=== PATIENT | male | born 1950 | race Caucasian/White ===

== ENCOUNTER 2018-07-12 17:07 | Inpatient (IN) | payer BC, MEDICARE ==
[~2018-07-12] VITALS: Ht 177.8 cm; Wt 105.2 kg
[~2018-07-12 17:07] MED LIST: BEPO10DR3; CAND4TAB; CYCL1DRO6 OU; HCTZ25 PO; LANS15CA38; PER PO
[2018-07-12] MEDS ORDERED: NS(*) 0.9% 1000 ML BAG 1,000 ML IV ONE (17:41)
--- NOTE | 2018-07-12 17:47 | ER Report ---
History and Physical Time Seen By MD: 17:32 Hx. of Stated Complaint: Sent by with shortness of breath, low oxygen and distended abdomen. No bowel movement for 5 days HPI/ROS CHIEF COMPLAINT: Dyspnea HISTORY OF PRESENT ILLNESS: This is a 68-year-old male who presents to the emergency department for dyspnea. The patient was seen and evaluated by his primary care provider, sent to the ER for further evaluation. Patient states that about 2-3 days ago he was hiking, had increased shortness of breath, has been ongoing since however today he had increased dyspnea became concerned and followed up with his primary care provider. They noted his room air saturation in the 70s, he is placed on 2 L nasal cannula his saturation came up to the 90s. Patient is also concerned that he has underlying asthma and has been having some increased asthma exacerbations, he also has a sensitivity to perfumes and was concerned that she had an exposure to a perfume today that could've caused his increased shortness of breath. Patient does however have a history of a pulmonary embolus. He is also not had a bowel movement in about 5-6 days, has distention and some discomfort in his abdomen. No dysuria. No rashes. No chest pain. No fevers or chills. REVIEW OF SYSTEMS: Constitutional: No fever, no chills. Eyes: No discharge. ENT: No sore throat. Cardiovascular: No chest pain, no palpitations. Respiratory: As above. Gastrointestinal: As above. Genitourinary: No hematuria. Musculoskeletal: No back pain. Skin: No rashes. Neurological: No headache. Allergies: Coded Allergies: Penicillins (Verified Allergy, Severe, RASH, 07/12/18) montelukast (Verified Allergy, Intermediate, hives, 07/12/18) Home Meds Reported Medications Lansoprazole (LANSOPRAZOLE) 30 Mg Capsule.dr, 30 MG PO QDAY 07/12/18 Losartan Potassium (LOSARTAN POTASSIUM) 100 Mg Tablet, 1 TAB PO QDAY 07/12/18 Cyclosporine (Restasis) 32 Ea Droperette, 1 DROP OU BID 12/27/11 Hydrochlorothiazide (Hydrochlorothiazide) 25 Mg Tab, 1 TAB PO QDAY 12/27/11 Discontinued Reported Medications Oxycodone/Acetaminophen (OXYCODONE/ACETAMINOPHEN 5MG/325 MG) 5 Mg/325 Mg Tab, 1 - 2 TAB PO Q4H, #30 12/27/11 Bepotastine Besilate (Bepreve) 10 Ml Drops 12/27/11 Lansoprazole (Prevacid) 15 Mg Capsule. 12/27/11 Candesartan Cilexetil (ATACAND) 4 Mg Tablet 12/27/11 Past Medical/Surgical History The patient has a past medical and surgical history of hypertension, pulmonary embolus, asthma, GERD, osteoarthritis, wears glasses, eczema, cyst removal from left wrist, total hip replacement on the right, tonsillectomy. Reviewed Nurses Notes: Yes Hx Smoking: No Hx Substance Use Disorder: No Hx Alcohol Use: Yes (OCC) Constitutional Vital Sign - Last 24 Hours 07/12/18 07/12/18 07/12/18 07/12/18 17:10 17:10 17:15 17:30 Temp 98.0 Pulse 112 105 99 Resp 22 17 32 B/P (MAP) 134/85 Pulse Ox 78 94 91 O2 Flow Rate 4.0 07/12/18 07/12/18 07/12/18 07/12/18 17:45 18:07 18:15 18:30 Pulse 98 Resp 40 19 B/P (MAP) 102/74 (83) 138/90 (106) Pulse Ox 92 96 07/12/18 07/12/18 07/12/18 07/12/18 18:45 19:00 19:15 19:30 Pulse 95 89 98 91 Resp 22 15 18 B/P (MAP) 111/71 (84) 127/73 (91) Pulse Ox 96 85 92 Physical Exam General Appearance: The patient is alert, has no immediate need for airway protection and no signs of toxicity. Eyes: Pupils equal and round no pallor or injection. ENT, Mouth: Mucous membranes are moist. Respiratory: There are no retractions, diminished right-sided lung sounds, left side clear to auscultation. Cardiovascular: Regular rate and rhythm, no murmurs, clicks or rubs. Gastrointestinal: Abdomen very round, distended and firm, hypoactive bowel sounds in the right lower quadrant, left upper and lower quadrants, normoactive to hyperactive in the right upper quadrant, tenderness to the right upper quadrant. No abdominal bruits. Neurological: Alert and oriented 4. Moving all extremities. Following all co mmands. No focal neuro deficits. Skin: Warm and dry, no rashes. Musculoskeletal: Neck is supple non tender. Extremities are nontender, nonswollen and have full range of motion. DIFFERENTIAL DIAGNOSIS: After history and physical exam differential diagnosis was considered for shortness of breath including but not limited to pulmonary infectious process, COPD, asthma, pulmonary embolus and congestive heart failure.abdominal pain including but not limited to appendicitis, cholecystitis, gastritis and urinary tract infection. Medical Decision Making Data Points Result Diagram: 07/12/18 1716 07/12/18 1716 Laboratory Hematology Test 07/12/18 15:16 07/12/18 17:16 07/12/18 18:03 Prothrombin Time 13.3 seconds (12.0-14.4) Prothromb Time International Ratio 1.01 Activated Partial Thromboplast Time 28 seconds (23-35) Red Blood Count 6.25 M/uL (4.00-5.60) Mean Corpuscular Volume 77.4 fL (80.0-96.0) Mean Corpuscular Hemoglobin 25.0 pg (26.0-33.0) Mean Corpuscular Hemoglobin Concent 32.3 g/dL (32.0-36.0) Red Cell Distribution Width 18.3 % (11.5-14.5) Mean Platelet Volume 8.0 fL (7.2-11.1) Neutrophils (%) (Auto) 69.0 % (39.4-72.5) Lymphocytes (%) (Auto) 19.9 % (17.6-49.6) Monocytes (%) (Auto) 7.6 % (4.1-12.4) Eosinophils (%) (Auto) 1.7 % (0.4-6.7) Basophils (%) (Auto) 1.8 % (0.3-1.4) Nucleated RBC Relative Count (auto) 0.1 /100WBC Neutrophils # (Auto) 8.3 K/uL (2.0-7.4) Lymphocytes # (Auto) 2.4 K/uL (1.3-3.6) Monocytes # (Auto) 0.9 K/uL (0.3-1.0) Eosinophils # (Auto) 0.2 K/uL (0.0-0.5) Basophils # (Auto) 0.2 K/uL (0.0-0.1) Nucleated RBC Absolute Count (auto) 0.02 K/uL Peripheral Blood Smear Y/N Sodium Level 135 mmol/L (137-145) Potassium Level 3.5 mmol/L (3.5-5.0) Chloride Level 98 mmol/L (98-107) Carbon Dioxide Level 27 mmol/L (22-30) Blood Urea Nitrogen 23 mg/dl (9-21) Creatinine 1.50 mg/dl (0.66-1.25) Glomerular Filtration Rate Calc 46.5 Random Glucose 112 mg/dl (75-110) Calcium Level 9.3 mg/dl (8.4-10.2) Total Bilirubin 0.6 mg/dl (0.2-1.3) Aspartate Amino Transf (AST/SGOT) 44 U/L (0-35) Alanine Aminotransferase (ALT/SGPT) 55 U/L (0-56) Alkaline Phosphatase 92 U/L (0-126) Troponin I 0.080 ng/ml Total Protein 7.5 g/dl (6.3-8.2) Albumin 4.0 g/dl (3.5-5.0) Urine Color Yellow Urine Clarity Clear Urine pH 7.0 pH (4.8-9.5) Urine Specific [place] 1.009 Urine Protein Negative mg/dL (NEGATIVE) Urine Glucose (UA) Negative mg/dL (NEGATIVE) Urine Ketones Negative mg/dL (NEGATIVE) Urine Blood Negative (NEGATIVE) Urine Nitrite Negative (NEGATIVE) Urine Bilirubin Negative (NEGATIVE) Urine Urobilinogen Negative mg/dL (0.2-1.9) Urine Leukocyte Esterase Negative (NEGATIVE) Urine RBC <1 /HPF (0-2/HPF) Urine WBC 1 /HPF (0-5/HPF) Urine Squamous Epithelial Cells None /LPF (</=FEW) Urine Bacteria Negative /HPF (NONE-FEW) Urine Mucus None /HPF (NONE-FEW) Chemistry Test 07/12/18 15:16 07/12/18 17:16 07/12/18 18:03 Prothrombin Time 13.3 seconds (12.0-14.4) Prothromb Time International Ratio 1.01 Activated Partial Thromboplast Time 28 seconds (23-35) White Blood Count 12.1 k/uL (4.5-11.0) Red Blood Count 6.25 M/uL (4.00-5.60) Hemoglobin 15.6 g/dL (14.0-18.0) Hematocrit 48.4 % (42.0-52.0) Mean Corpuscular Volume 77.4 fL (80.0-96.0) Mean Corpuscular Hemoglobin 25.0 pg (26.0-33.0) Mean Corpuscular Hemoglobin Concent 32.3 g/dL (32.0-36.0) Red Cell Distribution Width 18.3 % (11.5-14.5) Platelet Count 274 K/uL (150-450) Mean Platelet Volume 8.0 fL (7.2-11.1) Neutrophils (%) (Auto) 69.0 % (39.4-72.5) Lymphocytes (%) (Auto) 19.9 % (17.6-49.6) Monocytes (%) (Auto) 7.6 % (4.1-12.4) Eosinophils (%) (Auto) 1.7 % (0.4-6.7) Basophils (%) (Auto) 1.8 % (0.3-1.4) Nucleated RBC Relative Count (auto) 0.1 /100WBC Neutrophils # (Auto) 8.3 K/uL (2.0-7.4) Lymphocytes # (Auto) 2.4 K/uL (1.3-3.6) Monocytes # (Auto) 0.9 K/uL (0.3-1.0) Eosinophils # (Auto) 0.2 K/uL (0.0-0.5) Basophils # (Auto) 0.2 K/uL (0.0-0.1) Nucleated RBC Absolute Count (auto) 0.02 K/uL Peripheral Blood Smear Y/N Glomerular Filtration Rate Calc 46.5 Calcium Level 9.3 mg/dl (8.4-10.2) Total Bilirubin 0.6 mg/dl (0.2-1.3) Aspartate Amino Transf (AST/SGOT) 44 U/L (0-35) Alanine Aminotransferase (ALT/SGPT) 55 U/L (0-56) Alkaline Phosphatase 92 U/L (0-126) Troponin I 0.080 ng/ml Total Protein 7.5 g/dl (6.3-8.2) Albumin 4.0 g/dl (3.5-5.0) Urine Color Yellow Urine Clarity Clear Urine pH 7.0 pH (4.8-9.5) Urine Specific [place] 1.009 Urine Protein Negative mg/dL (NEGATIVE) Urine Glucose (UA) Negative mg/dL (NEGATIVE) Urine Ketones Negative mg/dL (NEGATIVE) Urine Blood Negative (NEGATIVE) Urine Nitrite Negative (NEGATIVE) Urine Bilirubin Negative (NEGATIVE) Urine Urobilinogen Negative mg/dL (0.2-1.9) Urine Leukocyte Esterase Negative (NEGATIVE) Urine RBC <1 /HPF (0-2/HPF) Urine WBC 1 /HPF (0-5/HPF) Urine Squamous Epithelial Cells None /LPF (</=FEW) Urine Bacteria Negative /HPF (NONE-FEW) Urine Mucus None /HPF (NONE-FEW) Coagulation Test 07/12/18 15:16 Prothrombin Time 13.3 seconds Prothromb Time International Ratio 1.01 Activated Partial Thromboplast Time 28 seconds Urinalysis Test 07/12/18 18:03 Urine Color Yellow Urine Clarity Clear Urine pH 7.0 pH (4.8-9.5) Urine Specific [place] 1.009 Urine Protein Negative mg/dL (NEGATIVE) Urine Glucose (UA) Negative mg/dL (NEGATIVE) Urine Ketones Negative mg/dL (NEGATIVE) Urine Blood Negative (NEGATIVE) Urine Nitrite Negative (NEGATIVE) Urine Bilirubin Negative (NEGATIVE) Urine Urobilinogen Negative mg/dL (0.2-1.9) Urine Leukocyte Esterase Negative (NEGATIVE) Urine RBC <1 /HPF (0-2/HPF) Urine WBC 1 /HPF (0-5/HPF) Urine Squamous Epithelial Cells None /LPF (</=FEW) Urine Bacteria Negative /HPF (NONE-FEW) Urine Mucus None /HPF (NONE-FEW) EKG/Imaging EKG Interpretation 12 lead EKG: Time of EKG 1804. Rhythm: Sinus tachycardia, ventricular rate 103 bpm. [place]: Right ventricular hypertrophy. QRS: normal ST segments: No ST depression or elevation identified. There are inverted T waves in V2, V3, V4 with poor T-wave progression in V5 and V6. No previous EKGs for comparison. Imaging Location: [facility] Patient: Kervin Eldridge : 1950 Visit/Account:[id number] Date of Sevice: 07/12/2018 EXAMINATION: CTA of the chest with IV contrast CT abdomen/pelvis with IV contrast HISTORY: Shortness of breath. Dyspnea. Low O2. History of PE. No bowel movement for 5 days. Distention. Possible obstruction. TECHNIQUE: Pulmonary embolus protocol - Thin-slice axial imaging of the chest was performed during maximal pulmonary arterial opacification with IV contrast. 3D slab MIPs and 2D reconstructions in the coronal and sagittal planes were performed to aid pulmonary embolus detection. Wire Saw Operator images have been stored on PACS. Axial CT images of the abdomen and pelvis were then obtained with IV contrast, with coronal and sagittal 2D reconstructed images. One of the following dose optimization techniques was utilized in the performance of this exam: Automated exposure control; adjustment of the mA and/or kV according to the patient's size; or use of an iterative reconstruction technique. Specific details can be referenced in the facility's radiology CT exam operational policy. Contrast: 75 mL of IV Isovue-370. COMPARISON: None. FINDINGS: Chest: Pulmonary arteries: Exam is positive for pulmonary embolism. There is a filling defect in the left upper lobe pulmonary artery extending into segmental and subsegmental branches. There is a filling defect in the left lower lobe pulmonary artery, extending into segmental and subsegmental branches. There is a filling defect in the distal right main pulmonary artery, extending into segmental and subsegmental branches in the right middle and lower lobes. Additional small filling defects present within right upper lobe pulmonary artery branches. Moderate volume of overall clot burden. Heart, aorta, and great vessels: Normal caliber thoracic aorta. There is enlargement of the right-sided cardiac chambers with an RV:LV ratio of 1.2 which may indicate some degree of right heart strain. No pericardial effusion. Lungs and pleura: Slight scarring or atelectasis at the lung bases. No focal consolidation or evidence of pulmonary infarct. No pleural effusion or pneumothorax. The central airways are patent. Mediastinum and brandon: Small hiatal hernia. Chest wall: Negative. Bones: No acute osseous findings. Advanced chronic degenerative changes at the right shoulder. Mild multilevel degenerative changes along the thoracic spine. Abdomen/pelvis: Liver: Negative. Gallbladder and bile ducts: Negative. Spleen: Negative. Pancreas: Negative. Adrenal glands: Negative. Kidneys: Negative. No hydronephrosis or urinary calculi. Bowel and peritoneum: The small bowel and colon are normal in caliber. No bowel obstruction. Moderate volume of colonic stool along the right and transverse colon. No localized bowel wall thickening. Normal appendix. No free fluid or free intraperitoneal air. Pelvic structures: There is a small bladder diverticulum along the posterolateral left bladder wall, measuring up to 2.2 cm. Lymph node assessment: Negative. Vessels: Mild vascular calcifications. Normal caliber abdominal aorta. Musculoskeletal: No acute osseous findings. Chronic multilevel degenerative changes along the lumbar spine. Partially visualized right hip arthroplasty. Body wall: Negative. IMPRESSION: 1. Positive exam for pulmonary embolism, with a moderate clot burden to both lungs. 2. Enlargement of the right-sided cardiac chambers with a calculated RV:LV ratio 1.2, which may indicate some degree of right heart strain. 3. The lungs are clear. No focal consolidation or evidence of pulmonary infarct. No pleural effusion. 4. Moderate volume of colonic stool along the right and transverse colon. No evidence of bowel obstruction. 5. No other acute intra-abdomi al findings. Findings were discussed with SAMIRA NOONAN at 07/12/2018 7:05 PM. Report Dictated By: Kaveh Jerez MD at 07/12/2018 6:57 PM Report E-Signed By: Kaveh Jerez MD at 07/12/2018 7:09 PMWSN:[id number] ED Course/Re-evaluation Clinical Indication for ER IV: Hydration, IV Access ED Course The patient was admitted to room. A history and physical were obtained. Differential diagnoses were considered. An IV was started. A CBC, CMP and UA were collected. EKG showing sinus tachycardia, no ST depression or elevation, inverted T waves in the lateral leads, no previous EKGs for comparison. CBC showing white blood cell count 12.1, red blood cells 6.25, chemistry showing sodium 135, BUN 23, creatinine 1.50, troponin 0.080, INR 1.01, negative UA. The patient was given a 1 L normal saline bolus. No d-dimer was done, patient has a history of pulmonary emboli and with his symptoms I decided to proceed with a CTA of the chest and a CT of the abdomen and pelvis. CTA showing pulmonary emboli and right and left lungs, with some right heart strain, no concerning findings on the CT of the abdomen and pelvis. I reviewed the results with the patient and his , I did explain to them that I was concerned that with the right heart strain and the emboli in both lungs he would be better off staying in the hospital for anticoagulation, possible echocardiogram. I also feel that the troponin is secondary to heart strain and a mild elevation in the patient's creatinine. I discussed the case with Dr. Julia xiong, the hospitalist on- call, he is accepted the patient in the hospitalist services, the patient will be admitted to the ICU for 24-48 hours. I reviewed this with the patient, no other questions or concerns at the time of admission. 07/12/2018 7:30:36 pm he did speak with Dr. Julia xiong, the hospitalist condenser tube tender, we discussed the patient's case, he is accepted the patient in the hospitalist services, the patient will be going to the intensive care unit, diagnosis of pulmonary embolus and right heart strain. Decision to Disposition Date: Jul 12, 2018 Decision to Disposition Time: 19:30 Depart Departure Latest Vital Signs Vital Signs Date Time Temp Pulse Resp B/P (MAP) Pulse Ox O2 Delivery O2 Flow Rate FiO2 07/12/18 19:30 91 18 127/73 (91) 92 07/12/18 17:10 98.0 07/12/18 17:10 4.0 Impression: Primary Impression: Pulmonary emboli Condition: Improved Disposition: Admitted from ER Referrals: DAYANARA ESPINO DO (PCP) Problem Qualifiers Primary Impression: Pulmonary emboli Pulmonary embolism type: other Chronicity: acute Acute cor pulmonale presence: without acute cor pulmonale Qualified Codes: I26.99 - Other pulmonary embolism without acute cor pulmonale SAMIRA NOONAN CLINICAL RESEARCH MONITOR-BC Jul 12, 2018 17:47
[2018-07-12 17:51] LABS: PLATELET COUNT, AUTOMATED 274 K/uL (150-450)
[2018-07-12] MEDS ORDERED: IOPAMIDOL 76% 50 ML INFUS BTL 100 ML ONE (18:02)
[2018-07-12] MEDS ORDERED: NS(*) 0.9% 50 ML BAG 50 ML ONE (18:03)
--- NOTE | 2018-07-12 18:31 | EKG ---
[place] [facility] [place] NAME: CHALO HERNANDEZ : [id number] MR: [id number] V: [id number] EXAM DATE: ORDERING PHYSICIAN: SAMIRA NOONAN TECHNOLOGIST: MIHAI Test Reason : DYSPNEA Blood Pressure : / mmHG Vent. Rate : 103 BPM Atrial Rate : 103 BPM P-R Int : 184 ms QRS Dur : 088 ms QT Int : 344 ms P-R-T Axes : 048 158 051 degrees QTc Int : 450 ms Sinus tachycardia with premature atrial complexes Right ventricular hypertrophy with repolarization abnormality Nonspecific T wave abnormality Abnormal ECG No previous ECGs available Confirmed by Sinan Parkinson ([id number]) on 07/13/2018 6:38:21 AM Referred By: SAMIRA Confirmed By:Sinan Maldonado
--- NOTE | 2018-07-12 19:12 | RADIOLOGY IMAGING REPORT ---
FACILITY: [facility] PATIENT NAME: Kervin Eldridge : 1950 MR: [id number] V: [id number] EXAM DATE: ORDERING PHYSICIAN: SAMIRA NOONAN TECHNOLOGIST: Location: [facility] Patient: Kervin Eldridge : 1950 Visit/Account:[id number] Date of Sevice: 07/12/2018 EXAMINATION: CTA of the chest with IV contrast CT abdomen/pelvis with IV contrast HISTORY: Shortness of breath. Dyspnea. Low O2. History of PE. No bowel movement for 5 days. Distenti on. Possible obstruction. TECHNIQUE: Pulmonary embolus protocol - Thin-slice axial imaging of the chest was performed during maximal pulmonary arterial opacification with IV contrast. 3D slab MIPs and 2D reconstructions in the coronal and sagittal planes were performed to aid pulmonary embolus detection. Correction Lieutenant images have been stored on PACS. Axial CT images of the abdomen and pelvis were then obtained with IV contrast, with coronal and sagit tree 2D reconstructed images. One of the following dose optimization techniques was utilized in the performance of this exam: Autom ated exposure control; adjustment of the mA and/or kV according to the patient's size; or use of an i terative reconstruction technique. Specific details can be referenced in the facility's radiology C T exam operational policy. Contrast: 75 mL of IV Isovue-370. COMPARISON: None. FINDINGS: Chest: Pulmonary arteries: Exam is positive for pulmonary embolism. There is a filling defect in the left u pper lobe pulmonary artery extending into segmental and subsegmental branches. There is a filling def ect in the left lower lobe pulmonary artery, extending into segmental and subsegmental branches. Ther e is a filling defect in the distal right main pulmonary artery, extending into segmental and subsegm ental branches in the right middle and lower lobes. Additional small filling defects present within r ight upper lobe pulmonary artery branches. Moderate volume of overall clot burden. Heart, aorta, and great vessels: Normal caliber thoracic aorta. There is enlargement of the right-si ded cardiac chambers with an RV:LV ratio of 1.2 which may indicate some degree of right heart strain. No pericardial effusion. Lungs and pleura: Slight scarring or atelectasis at the lung bases. No focal consolidation or eviden ce of pulmonary infarct. No pleural effusion or pneumothorax. The central airways are patent. Mediastinum and brandon: Small hiatal hernia. Chest wall: Negative. Bones: No acute osseous findings. Advanced chronic degenerative changes at the right shoulder. Mild multilevel degenerative changes along the thoracic spine. Abdomen/pelvis: Liver: Negative. Gallbladder and bile ducts: Negative. Spleen: Negative. Pancreas: Negative. Adrenal glands: Negative. Kidneys: Negative. No hydronephrosis or urinary calculi. Bowel and peritoneum: The small bowel and colon are normal in caliber. No bowel obstruction. Moderat e volume of colonic stool along the right and transverse colon. No localized bowel wall thickening. N ormal appendix. No free fluid or free intraperitoneal air. Pelvic structures: There is a small bladder diverticulum along the posterolateral left bladder wa ll, measuring up to 2.2 cm. Lymph node assessment: Negative. Vessels: Mild vascular calcifications. Normal caliber abdominal aorta. Musculoskeletal: No acute osseous findings. Chronic multilevel degenerative changes along the lumba r spine. Partially visualized right hip arthroplasty. Body wall: Negative. IMPRESSION: 1. Positive exam for pulmonary embolism, with a moderate clot burden to both lungs. 2. Enlargement of the right-sided cardiac chambers with a calculated RV:LV ratio 1.2, which may indic ate some degree of right heart strain. 3. The lungs are clear. No focal consolidation or evidence of pulmonary infarct. No pleural effusion. 4. Moderate volume of colonic stool along the right and transverse colon. No evidence of bowel obstru ction. 5. No other acute intra-abdomi al findings. Findings were discussed with SAMIRA NOONAN at 07/12/2018 7:05 PM. Report Dictated By: Kaveh Jerez MD at 07/12/2018 6:57 PM Report E-Signed By: Kaveh Jerez MD at 07/12/2018 7:09 PMWSN:[id number]
--- NOTE | 2018-07-12 19:13 | RADIOLOGY IMAGING REPORT ---
FACILITY: [facility] - [place], [place] PATIENT NAME: Kervin Eldridge : 1950 MR: [id number] V: [id number] EXAM DATE: ORDERING PHYSICIAN: SAMIRA NOONAN TECHNOLOGIST: Location: [facility] Patient: Kervin Eldridge : 1950 Visit/Account:[id number] Date of Sevice: 07/12/2018 EXAMINATION: CTA of the chest with IV contrast CT abdomen/pelvis with IV contrast HISTORY: Shortness of breath. Dyspnea. Low O2. History of PE. No bowel movement for 5 days. Distenti on. Possible obstruction. TECHNIQUE: Pulmonary embolus protocol - Thin-slice axial imaging of the chest was performed during maximal pulmonary arterial opacification with IV contrast. 3D slab MIPs and 2D reconstructions in the coronal and sagittal planes were performed to aid pulmonary embolus detection. [employer] images have been stored on PACS. Axial CT images of the abdomen and pelvis were then obtained with IV contrast, with coronal and sagit tree 2D reconstructed images. One of the following dose optimization techniques was utilized in the performance of this exam: Autom ated exposure control; adjustment of the mA and/or kV according to the patient's size; or use of an i terative reconstruction technique. Specific details can be referenced in the facility's radiology C T exam operational policy. Contrast: 75 mL of IV Isovue-370. COMPARISON: None. FINDINGS: Chest: Pulmonary arteries: Exam is positive for pulmonary embolism. There is a filling defect in the left u pper lobe pulmonary artery extending into segmental and subsegmental branches. There is a filling def ect in the left lower lobe pulmonary artery, extending into segmental and subsegmental branches. Ther e is a filling defect in the distal right main pulmonary artery, extending into segmental and subsegm ental branches in the right middle and lower lobes. Additional small filling defects present within r ight upper lobe pulmonary artery branches. Moderate volume of overall clot burden. Heart, aorta, and great vessels: Normal caliber thoracic aorta. There is enlargement of the right-si ded cardiac chambers with an RV:LV ratio of 1.2 which may indicate some degree of right heart strain. No pericardial effusion. Lungs and pleura: Slight scarring or atelectasis at the lung bases. No focal consolidation or eviden ce of pulmonary infarct. No pleural effusion or pneumothorax. The central airways are patent. Mediastinum and brandon: Small hiatal hernia. Chest wall: Negative. Bones: No acute osseous findings. Advanced chronic degenerative changes at the right shoulder. Mild multilevel degenerative changes along the thoracic spine. Abdomen/pelvis: Liver: Negative. Gallbladder and bile ducts: Negative. Spleen: Negative. Pancreas: Negative. Adrenal glands: Negative. Kidneys: Negative. No hydronephrosis or urinary calculi. Bowel and peritoneum: The small bowel and colon are normal in caliber. No bowel obstruction. Moderat e volume of colonic stool along the right and transverse colon. No localized bowel wall thickening. N ormal appendix. No free fluid or free intraperitoneal air. Pelvic structures: There is a small bladder diverticulum along the posterolateral left bladder wa ll, measuring up to 2.2 cm. Lymph node assessment: Negative. Vessels: Mild vascular calcifications. Normal caliber abdominal aorta. Musculoskeletal: No acute osseous findings. Chronic multilevel degenerative changes along the lumba r spine. Partially visualized right hip arthroplasty. Body wall: Negative. IMPRESSION: 1. Positive exam for pulmonary embolism, with a moderate clot burden to both lungs. 2. Enlargement of the right-sided cardiac chambers with a calculated RV:LV ratio 1.2, which may indic ate some degree of right heart strain. 3. The lungs are clear. No focal consolidation or evidence of pulmonary infarct. No pleural effusion. 4. Moderate volume of colonic stool along the right and transverse colon. No evidence of bowel obstru ction. 5. No other acute intra-abdomi al findings. Findings were discussed with SAMIRA NOONAN at 07/12/2018 7:05 PM. Report Dictated By: Kaveh Jerez MD at 07/12/2018 6:57 PM Report E-Signed By: Kaveh Jerez MD at 07/12/2018 7:09 PMWSN:[id number]
[2018-07-12 20:19] LABS: INR 1.01
[2018-07-12] MEDS ORDERED: LOSA100T75 PO (20:19)
[2018-07-12] MEDS ORDERED: LANS30CA63 PO (20:31)
[2018-07-12 20:51] VITALS: BP 130/85
[2018-07-12] MEDS ORDERED: ACETAMINOPHEN 325 MG TAB PO PRN (21:25)
[2018-07-12] MEDS ORDERED: ENOXAPARIN 100 MG/ML SYR SC SCH (21:25)
[2018-07-12] MEDS ORDERED: FLUSH 10 ML SYR IVP PRN ×2 (21:25)
[2018-07-12 22:00] VITALS: BP 122/84
[2018-07-12 22:30] VITALS: BP 117/71
[2018-07-12 23:00] VITALS: BP 116/72
--- NOTE | 2018-07-12 23:05 | History & Physical ---
History of Present Illness Chief Complaint POLO History of Present Illness 68M with PMHx of previous PE admitted after PE found on imaging in ER. Reports 1-2 weeks of worsening dyspnea on exertion. No fever, chills, cough. No significant chest pain. Thought he might be having an exacerbation of his asthma and saw PCP. Was hypoxic in the 70's so referred to [facility] ER. CTA demonstrated significant bilateral clot burden and possible RH strain. Admitted to ICU for anticoagulation monitoring. History Problems: (1) HTN (hypertension) Status: Chronic (2) Asthma Status: Chronic (3) Pulmonary emboli Status: Chronic Home Meds Reported Medications Lansoprazole (LANSOPRAZOLE) 30 Mg Capsule.dr, 30 MG PO QDAY 07/12/18 Losartan Potassium (LOSARTAN POTASSIUM) 100 Mg Tablet, 1 TAB PO QDAY 07/12/18 Cyclosporine (Restasis) 32 Ea Droperette, 1 DROP OU BID 12/27/11 Hydrochlorothiazide (Hydrochlorothiazide) 25 Mg Tab, 1 TAB PO QDAY 12/27/11 Discontinued Reported Medications Oxycodone/Acetaminophen (OXYCODONE/ACETAMINOPHEN 5MG/325 MG) 5 Mg/325 Mg Tab, 1 - 2 TAB PO Q4H, #30 12/27/11 Bepotastine Besilate (Bepreve) 10 Ml Drops 12/27/11 Lansoprazole (Prevacid) 15 Mg Capsule. 12/27/11 Candesartan Cilexetil (ATACAND) 4 Mg Tablet 12/27/11 Allergies: Coded Allergies: Penicillins (Verified Allergy, Severe, RASH, 07/12/18) montelukast (Verified Allergy, Intermediate, hives, 07/12/18) Hx Smoking: No Hx Alcohol Use: Yes Alcohol Used: Beer Review of Systems All Systems Reviewed/Normal: Yes, Except as Noted Neurological: No Syncope, No Confusion Cardiovascular: No Chest Pain Respiratory: Shortness of Breath Exam Vital Signs Vital Signs Date Time Temp Pulse Resp B/P (MAP) Pulse Ox O2 Delivery O2 Flow Rate FiO2 07/12/18 22:26 96 07/12/18 22:00 30 122/84 (97) 96 High-Flow Nasal Cannula 6.0 07/12/18 20:51 97.8 General Appearance: Alert, Awake, No Acute Distress, Afebrile Neuro: No Gross deficits Eyes: PERRLA ENT: Normal Neck: No Masses Cardiovascular: Normal Rhythm & Peripheral Pulses Respiratory: Clear to Auscultation GI: Abd Soft and Non-Tender Extremities: Soft and Non Tender, Warm, Pulses, Perfused, Edema (mild to knee equal bilaterally) Medical Decision Making Data Points Result Diagram: 07/12/186 07/12/181715 Assessment and Plan Problems: (1) Pulmonary emboli Status: Chronic Assessment & Plan: Moderate bilateral clot burden with possible right heart strain. Will get ECHO, BNP and begin Lovenox 1.5mg/kg. Likely transition to NOAC. He is requiring O2. (2) Acute hypoxemic respiratory failure Assessment & Plan: Secondary to PE, treatment as above. May need supplemental O2 at discharge. (3) HTN (hypertension) Status: Chronic Assessment & Plan: Hold chronic ARB, monitor Cr. (4) ALISON (acute kidney injury) Assessment & Plan: Cr 1.5 on admission, unknown baseline. Will hold ARB and recheck in am. Venous Thromboembolism Antithrombotics Is Pt On Any Antithrombotics?: Yes Exam Sepsis Risk: No Definite Risk Problem Qualifiers (1) Pulmonary emboli: Pulmonary embolism type: other Chronicity: acute Acute cor pulmonale p resence: without acute cor pulmonale Qualified Codes: I26.99 - Other pulmonary embolism without acute cor pulmonale ELDA MAGANA DO Jul 12, 2018 23:05
[2018-07-12 23:30] VITALS: BP 97/62
[2018-07-13] VITALS (50 sets, daily range): BP systolic 90–134; BP diastolic 59–97; Ht 177.8 cm; Wt 105.2 kg
[2018-07-13 05:26] LABS: PLATELET COUNT, AUTOMATED 219 K/uL (150-450)
[2018-07-13] MEDS ORDERED: MAGNESIUM HYDROXIDE* 30ML UDCP PO PRN (08:10)
[2018-07-13] MEDS ORDERED: SALINE 0.65% NAS SPR 44 ML BTL PRN (08:10)
[2018-07-13] MEDS ORDERED: BISACODYL 10 MG SUPP PR PRN (08:10)
[2018-07-13] MEDS: APIXABAN 2.5 MG TABLET PO SCH ×2 (09:05→20:29)
[2018-07-13] MEDS: DOCUSATE SODIUM 100 MG CAP PO SCH ×2 (09:05→20:28)
[2018-07-13] MEDS: TAMSULOSIN HCL 0.4 MG CAP PO SCH (09:05)
[2018-07-13] MEDS: POLYETHYLENE GLYCOL 17 GM PKT PO SCH (09:05)
--- NOTE | 2018-07-13 09:09 | Hospitalist Progress Note ---
Subjective Progress Notes Subjective He denies cp/sob/unilateral LE edema. Staff reports that he has a 500cc PVR. Also, the patient reports that he hasn't had a BM in 4-5 days. Physical Exam Vital Signs Date Time Temp Pulse Resp B/P (MAP) Pulse Ox O2 Delivery O2 Flow Rate FiO2 07/13/18 07:28 93 07/13/18 07:15 97.5 24 115/80 (92) 95 High-Flow Nasal Cannula 6.0 Intake and Output 07/13/18 06:59 Intake Total 2000 ml Balance 2000 ml Intake Oral 1000 ml IV Total 1000 ml # Voids 5 # Bowel Movements 2 General Appearance: Alert, Awake, No Acute Distress Cardiovascular: Regular Rate and Rhythm Respiratory: Clear to Auscultation Extremities: No Edema Result Diagram: 07/13/1851607/13/18516 Assessment and Plan Problems: (1) Pulmonary emboli Status: Chronic Assessment & Plan: He presented with a couple of days of progressive POLO. He has moderate bilateral clot burden with possible right heart strain. BP/P wnl. BNP elevated and troponin in the [place] area. He is still requiring 8L of O2. He received Lovenox at 1.5mg/kg last night. Will transition to Eliquis. Echo today. BNP/Troponin/Hypercoagulable workup tomorrow (2) Acute hypoxemic respiratory failure Assessment & Plan: Secondary to PE, treatment as above. May need supplemental O2 at discharge. (3) HTN (hypertension) Status: Chronic Assessment & Plan: Hold chronic ARB, monitor Cr. (4) ALISON (acute kidney injury) Assessment & Plan: Cr 1.5 on admission, unknown baseline. He also having asymptomatic 500cc of PVR. Cr 1.2 today. (5) Urine retention Status: Acute Assessment & Plan: Asymptomatic retention of 500cc. Unclear how long he has had this. Likely, related to BPH. Will start Flomax this morning and follow PVR with bladder scanner. Hopefully, can avoid catheterization. Exam Sepsis Risk: No Definite Risk Problem Qualifiers (1) Pulmonary emboli: Pulmonary embolism type: other Chronicity: acute Acute cor pulmonale presence: without acute cor pulmonale Qualified Codes: I26.99 - Other pulmonary embolism without acute cor pulmonale RENETTA DE LUNA MD Jul 13, 2018 09:09
[2018-07-13] MEDS ORDERED: BENZONATATE 100 MG CAP PO PRN ×2 (22:55→23:15)
[2018-07-13] MEDS ORDERED: BENZONATATE 100 MG CAP ONE (22:58)
[2018-07-14 05:00] VITALS: BP 109/79
[2018-07-14 06:17] LABS: PLATELET COUNT, AUTOMATED 214 K/uL (150-450)
[2018-07-14 08:04] VITALS: BP 122/79
[2018-07-14] MEDS ORDERED: POLYETHYLENE GLYCOL 17 GM PKT PO PRN (08:20)
[2018-07-14] MEDS ORDERED: DOCUSATE SODIUM 100 MG CAP PO SCH (09:00)
[2018-07-14] MEDS: DOCUSATE SODIUM 100 MG CAP PO SCH (09:14)
[2018-07-14] MEDS: TAMSULOSIN HCL 0.4 MG CAP PO SCH (09:14)
[2018-07-14] MEDS: POLYETHYLENE GLYCOL 17 GM PKT PO SCH (09:15)
[2018-07-14] MEDS: APIXABAN 2.5 MG TABLET PO SCH (09:15)
[2018-07-14] MEDS ORDERED: APIX5TAB PO (10:32)
[2018-07-14] MEDS ORDERED: TAMS0.4C70 PO (10:34)
[2018-07-14] MEDS ORDERED: BENZ100C26 PO (10:34)
--- NOTE | 2018-07-14 10:46 | Hospitalist Depart ---
Discharge Summary Reason for Hosp/Final Diag: (1) Pulmonary emboli Status: Chronic Hospital Course & Plan: The patient presented with a few of days of progressive POLO. He has pulmonary embolism with moderate bilateral clot burden with possible right heart strain on pulmonary CTA. Vital signs were stable. BNP elevated and his initial troponin was in the [place] area. His troponin then normalized. His O2 requirements were high on admission, but gradually improved. At the time of discharge, he was requiring 2L per NC to maintain his saturations. He initially received Lovenox at 1.5mg/kg and then was transitioned to Eliquis. Echo was performed, formal results are pending. Hypercoaguable work up was ordered and the patient is to follow up with Dr. Lobo for further evaluation of he coagulopathy. The patient is also to follow up with Dr. Snow in one week. (2) Acute hypoxemic respiratory failure Hospital Course & Plan: Secondary to PE, treatment as above. Will require supplemental O2 at discharge. Will follow up with Dr. Snow in one week. (3) HTN (hypertension) Status: Chronic Hospital Course & Plan: Hold chronic ARB and diuretic due to low BPs and elevated creatinine on admission. Creatinine improved with hydration. BP remained WNL off of medications during his inpatient stay. (4) ALISON (acute kidney injury) Hospital Course & Plan: Cr was 1.5 on admission, unknown baseline. He was also having asymptomatic urinary retention with 500cc of PVR. Flomax was started. Creatinine improved with hydration to 1.1. (5) Urine retention Status: Acute Hospital Course & Plan: Asymptomatic urinary retention of 500cc. Unclear how long he has had this. Likely, related to BPH. Flomax started. Departure Weight (Pounds): 232 Result Diagram: 07/14/1854707/14/18547 Condition: Improved Discharge: Home, Self Care Time Spent: < 30 min Discharge Instructions Home Meds Active Scripts Tamsulosin Hcl (TAMSULOSIN HCL) 0.4 Mg Cap.er.24h, 0.4 MG PO QDAY, #60 CAP Prov:TAVON GUILLEN MD 07/14/18 Benzonatate (BENZONATATE) 100 Mg Capsule, 200 MG PO Q8H PRN for COUGH, #30 CAPSULE 1 Refill Prov:TAVON GUILLEN MD 07/14/18 Apixaban (ELIQUIS) 5 Mg Tablet, 0 PO DIRECTED for 30 Days, #71 TAB 10mg po bid through July 19, then 5mg po bid thereafter. Prov:TAVON GUILLEN MD 07/14/18 Reported Medications Lansoprazole (LANSOPRAZOLE) 30 Mg Capsule., 30 MG PO QDAY 07/12/18 Losartan Potassium (LOSARTAN POTASSIUM) 100 Mg Tablet, 1 TAB PO QDAY 07/12/18 Cyclosporine (Restasis) 32 Ea Droperette, 1 DROP OU BID 12/27/11 Hydrochlorothiazide (Hydrochlorothiazide) 25 Mg Tab, 1 TAB PO QDAY 12/27/11 Discontinued Reported Medications Oxycodone/Acetaminophen (OXYCODONE/ACETAMINOPHEN 5MG/325 MG) 5 Mg/325 Mg Tab, 1 - 2 TAB PO Q4H, #30 12/27/11 Bepotastine Besilate (Bepreve) 10 Ml Drops 12/27/11 Lansoprazole (Prevacid) 15 Mg Capsule. 12/27/11 Candesartan Cilexetil (ATACAND) 4 Mg Tablet 12/27/11 Follow up Referrals: Family Practice - In One Week @ [facility] with CARLITA SNOW MD Oncology - In One Week @ [facility] with Dr. Lobo Diet: Regular Activity: As Tolerated Copies to: IRAIS MATHIAS MD; CARLITA SNOW MD ; Venous Thromboembolism Antithrombotics Is Pt On Any Antithrombotics?: Yes Problem Qualifiers (1) Pulmonary emboli: Pulmonary embolism type: other Chronicity: acute Acute cor pulmonale presence: without acute cor pulmonale Qualified Codes: I26.99 - Other pulmonary embolism without acute cor pulmonale TAVON GUILLEN MD Jul 14, 2018 10:46
== END 2018-07-14 11:30 | disposition home or self-care (01) | DRG 175 ==
LOC: ER 17:28 → ICU 19:40 → MED 07-13 14:36
PROVIDERS: ADMIT Internal Medicine; ATTEND Internal Medicine
DX: I26.99 Other pulmonary embolism without acute cor pulmonale (principal); J96.01 Acute respiratory failure with hypoxia; N17.9 Acute kidney failure, unspecified; I10 Essential (primary) hypertension; K21.9 Gastro-esophageal reflux disease without esophagitis; R33.9 Retention of urine, unspecified; J45.909 Unspecified asthma, uncomplicated; L30.9 Dermatitis, unspecified; Z96.641 Presence of right artificial hip joint; N40.1 Benign prostatic hyperplasia with lower urinary tract symptoms; R33.8 Other retention of urine; Z88.0 Allergy status to penicillin; Z88.8 Allergy status to other drugs, medicaments and biological substances
CPT/HCPCS: 36415; 71275; 74177; 81001; 81240; 81241; 81291; 82040; 82247; 82310; 82374; 82435; 82565; 82947; 83090; 83880; 84075; 84132; 84155; 84295; 84450; 84460; 84484; 84520; 85025; 85300; 85303; 85306; 85597; 85610; 85613; 85670; 85730; 85732; 86146; 86147; 93005; C8929; J1650; J7030; J7050; Q9957; Q9967

== ENCOUNTER 2018-07-28 07:45 | Outpatient (RCR) | payer BC, MEDICARE ==
[2018-07-13 10:29] VITALS: Wt 105.0 kg
[2018-07-27 09:19] VITALS: BP 123/81
--- NOTE | 2018-07-27 11:53 | ONCOLOGY CONSULTATION ---
EVENT DATE: July 27, 2018 REFERRING PHYSICIAN Hospitalist. PRIMARY CARE PHYSICIAN Juan M Pedroza DO REASON FOR CONSULTATION Evaluation and management of recurrent pulmonary embolus. HEMATOLOGY HISTORY Patient is a 68-year-old male who had a history of pulmonary embolism of the left lung in 2004 and as per patient it was idiopathic, treated with anticoagulation and patient did not have DVT at that time. He presented recently to the emergency room at [facility] in [place], [place] with shortness of breath so the patient had a CTA chest done on July 12, 2018, which showed moderate pulmonary embolism bilaterally with right heart strain. Patient was started on anticoagulation with Eliquis and put on oxygen. 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 His factor C activity, protein C activity, protein S activity, antithrombin III, Factor V Leiden mutation, anticardiolipin antibodies, beta-2 glycoprotein I antibodies and lupus anticoagulants all came back within the normal range or negative. PAST MEDICAL HISTORY 1. Pulmonary embolism in 2014, second episode in June 2018 and both were idiopathic without associated DVT. 2. Hypertension. 3. GERD. 4. Osteoarthritis. PAST SURGICAL HISTORY 1. Cyst removal from the left wrist. 2. Right hip replacement, 2016. 3. Tonsillectomy. FAMILY HISTORY Maternal grandfather had stomach cancer. SOCIAL HISTORY The patient is with a son and daughter. 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 He drinks 2-3 beers per week but denies any abuse of tobacco or illicit drugs. CURRENT MEDICATIONS 1. Eliquis 5 mg twice daily. 2. Tamsulosin 0.4 mg once daily. 3. Lansoprazole 30 mg once daily. 4. Losartan potassium 100 mg daily. 5. Hydrochlorothiazide 25 mg daily. 6. Cyclosporin eye drops one drop each eye twice daily. 7. Ventolin 18 gram inhaler p.r.n. 8. Devora once daily. 9. Flonase 50 mg p.r.n. ALLERGIES PENICILLIN and AMOXICILLIN; both cause hives. REVIEW OF SYSTEMS CONSTITUTIONAL: No appetite or weight change. No fever, chills or sweating. No recent infection. HEENT: Ears: No tinnitus or hearing problem. Nose: He has epistaxis due to the use of oxygen. Throat: No sore throat or mouth ulcers. Eyes: No diplopia or visual changes. RESPIRATORY: He has dry cough. CARDIOVASCULAR: No chest pain, orthopnea, or paroxysmal nocturnal dyspnea (PND). No edema. No palpitations. GASTROINTESTINAL: No nausea or vomiting. No diarrhea or constipation. No change in bowel movements. No heartburn or swallowing difficulties. No abdominal pain. No jaundice. No hematemesis, melena or rectal bleeding. GENITOURINARY: Patient has had heavy periods for years, and she has been seen by a director independent, and she was offered uterine ablation, but the patient refused the procedure. As per patient, she has had heavy periods for a total of seven days every month. MUSCULOSKELETAL: He has pain in the neck. NEUROLOGICAL: He has headache. HEMATOLOGIC/LYMPHATIC: He is weak, tired and fatigued. SKIN: No skin rash or lumps. PSYCHIATRIC: No anxiety or depression. PHYSICAL EXAMINATION GENERAL: Looks stable. Well-developed, well-nourished, and in no acute distress. VITAL SIGNS: Blood pressure 123/81, [id number] per minute, respirations 16 per minute, temperature 97, pulse ox 91% on room air. HEENT: Head: Atraumatic. No sinus tenderness to palpation. Eyes: No icterus or conjunctivitis. Mouth and Throat: No oral thrush or mucositis. NECK: Supple. No cervical or supraclavicular lymphadenopathy. LUNGS: Clear to auscultation and percussion bilaterally. HEART: Regular rate and rhythm. No gallops, murmurs, clicks or rubs. ABDOMEN: Soft and lax. No tenderness. No hepatosplenomegaly. No masses. EXTREMITIES: No cyanosis, clubbing or edema. LYMPHATICS: No peripheral lymphadenopathy. NEUROLOGICAL: Conscious, alert and oriented x3. No focal motor or sensory deficits. PSYCHIATRIC: Mood and affect appear normal. SKIN: No skin rash, bruise or purpuric eruption. ASSESSMENT 1. 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 He had his first episode in 2004 and second episode in June 2018. He is currently on Eliquis 5 mg twice daily. Given that the patient had recurrent PE without DVT and both episodes were idiopathic, he is a candidate for life-long anticoagulation so I am planning to continue Eliquis 5 mg twice daily life-long. 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 Other thrombophilia workup was negative. I am planning to complete his thrombophilia workup so I am planning to check the prothrombin gene mutation and the antiphospholipid antibody panel. I am planning to repeat his homocysteine to be fasting because his specimen taken in the hospital was not fasting. Because of the heterozygous state for methylenetetrahydrofolate reductase mutation, I am planning to put him on folic acid 1 mg daily. I am planning to see him in two weeks to discuss the results of the blood work. 2. 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 I am planning to start folic acid 1 mg daily. PLAN 1. Prothrombin gene mutation. 2. Antiphospholipid antibody panel. 3. Fasting homocysteine level. 4. Folic acid 1 mg daily. 5. Continue Eliquis 5 mg twice daily. 6. Patient to return in two weeks for further evaluation and management. 7. Patient to contact us for any new concerns or complaints. BERNADINE
[~2018-07-28 07:45] MED LIST changes: +ALB18R INH; +APIX5TAB PO; +BENZ100C26 PO; +FEXO1TAB63 PO; +FLUT16SP19 NS; +LANS30CA63 PO; +LOSA100T75 PO; +TAMS0.4C70 PO
[2018-07-28 08:45] VITALS: BP 136/85
[2018-08-11 15:25] VITALS: BP 130/88
--- NOTE | 2018-08-11 23:54 | [facility] ONCOLOGY NOTE ---
EVENT DATE: August 11, 2018 DIAGNOSES 1. 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 2. 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 CHIEF COMPLAINT Patient is here today for followup of his recurrent idiopathic pulmonary embolism. HEMATOLOGY HISTORY Patient is a 68-year-old male who had a history of pulmonary embolism of the left lung in 2004, and as per patient, it was idiopathic, treated with anticoagulation. The patient did not have DVT at that time. He presented recently to the Emergency Room at [facility] in [place], [place], with shortness of breath, so the patient had a CTA chest done on July 12, 2018, which showed moderate pulmonary embolism bilaterally with right heart strain. Patient was started on anticoagulation with Eliquis and put on oxygen. He had thrombophilia workup done which came back positive for heterozygous state for methylenetetrahydrofolate reductase C677T mutation, and homocysteine level was mildly elevated at 13, but as per patient, this was not a fasting specimen. His factor C activity, protein C activity, protein S activity, antithrombin III, factor V Leiden mutation, anticardiolipin antibodies, beta-2 glycoprotein I antibodies, and lupus anticoagulants all came back within the normal range or negative. Prothrombin gene mutation came back negative, and the antiphospholipid antibody panel also came back negative. Patient started treatment with folic acid 1 mg daily on the July, and he will continue Eliquis 5 mg twice daily for life. HISTORY OF PRESENT ILLNESS Patient is here today for followup of his recurrent idiopathic pulmonary embolism. He is doing fine currently except for occasional epistaxis. He has some loose stools after he started folic acid, but he is getting better currently. He is also weak, tired, and fatigued. PAST MEDICAL HISTORY 1. Pulmonary embolism in 2014, second episode in June 2018, and both were idiopathic without associated DVT. 2. Hypertension. 3. GERD. 4. Osteoarthritis. PAST SURGICAL HISTORY 1. Cyst removal from the left wrist. 2. Right hip replacement 2015. 3. Tonsillectomy. FAMILY HISTORY Maternal grandfather had stomach cancer. SOCIAL HISTORY The patient is with a son and daughter. 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 He drinks two to three beers per week, but denies any abuse of tobacco or illicit drugs. CURRENT MEDICATIONS 1. Eliquis 5 mg twice daily. 2. Tamsulosin 0.4 mg once daily. 3. Lansoprazole 30 mg once daily. 4. Losartan potassium 100 mg daily. 5. Hydrochlorothiazide 25 mg daily. 6. Cyclosporin eye drops one drop each eye twice daily. 7. Ventolin 18 g inhaler p.r.n. 8. Devora once daily. 9. Flonase 50 mg p.r.n. ALLERGIES PENICILLIN and AMOXICILLIN; both cause hives. REVIEW OF SYSTEMS CONSTITUTIONAL: No appetite or weight change. No fever, chills, or sweating. No recent infection. HEENT: Ears: No tinnitus or hearing problem. Nose: He has occasional epistaxis. Throat: No sore throat or mouth ulcers. Eyes: No diplopia or visual changes. RESPIRATORY: No shortness of breath. No cough, expectoration, or hemoptysis. CARDIOVASCULAR: No chest pain, orthopnea, or paroxysmal nocturnal dyspnea (PND). No edema. No palpitations. GASTROINTESTINAL: No nausea or vomiting. No constipation. He has some loose stools after he started folic acid treatment. No heartburn or swallowing difficulties. No abdominal pain. No jaundice. No hematemesis, melena, or rectal bleeding. GENITOURINARY: No hematuria or dysuria. MUSCULOSKELETAL: No pain in the muscles, joints, or bones. NEUROLOGICAL: No tingling or numbness in the hands or feet. No headaches or convulsions. HEMATOLOGIC/LYMPHATIC: No bleeding or easy bruising. He is weak, tired, and fatigued. No enlarged lymph nodes. SKIN: No skin rash or lumps. PSYCHIATRIC: No anxiety or depression. PHYSICAL EXAMINATION GENERAL: Looks stable. Well developed, well nourished, and in no acute distress. VITAL SIGNS: Blood pressure 130/88, pulse 104 per minute, respirations 16 per minute, temperature 98.1, pulse ox 90% on 2L oxygen. HEENT: Head: Atraumatic. No sinus tenderness to palpation. Eyes: No icterus or conjunctivitis. Mouth and throat: No oral thrush or mucositis. NECK: Supple. No cervical or supraclavicular lymphadenopathy. LUNGS: Clear to auscultation and percussion bilaterally. HEART: Regular rate and rhythm. No gallops, murmurs, clicks, or rubs. ABDOMEN: Soft and lax. No tenderness. No hepatosplenomegaly. No masses. EXTREMITIES: No cyanosis, clubbing, or edema. LYMPHATICS: No peripheral lymphadenopathy. NEUROLOGICAL: Conscious, alert, and oriented times three. No focal motor or sensory deficits. PSYCHIATRIC: Mood and affect appear normal. SKIN: No skin rash, bruise, or purpuric eruption. DIAGNOSTIC DATA CBC showed white count 7.8, hemoglobin 13.7, hematocrit 41.6, platelets 214,000, MCV 78.4. Homocysteine level is stable at 13. Prothrombin gene mutation is negative, and anticardiolipin and antiphospholipid antibody panel came back negative. ASSESSMENT 1. 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 He had his first episode in 2004 and second episode in June 2018. He is currently on Eliquis 5 mg twice daily. Given that he had recurrent pulmonary embolism without deep venous thrombosis, and both episodes were idiopathic, patient is a candidate for life-long anticoagulation, so the patient will continue on Eliquis 5 mg twice daily life long. Thrombophilia workup came back positive for homocysteine at 13, which is mildly elevated, and he was positive also for heterozygous state for methylenetetrahydrofolate reductase C677T mutation. Other thrombophilia workup after completion came back negative. His prothrombin gene mutation and factor V Leiden mutation, protein C, protein S, antithrombin III, antiphospholipid antibody syndrome testing all came back within the normal range. 2. Heterozygous state for methylenetetrahydrofolate reductase C677T mutation with mildly elevated homocysteine at 13. Patient started folic acid 1 mg daily on the July. I am planning to see him again in six months with fasting homocysteine level at that time. PLAN 1. Continue Eliquis 5 mg twice daily life long. 2. Folic acid 1 mg daily. 3. Patient to return in six months with fasting homocysteine level. 4. Patient to contact us for any new concerns or complaints. BERNADINE
== END 2018-08-21 08:07 | disposition home or self-care (01) ==
LOC: SPU 07:45
PROVIDERS: ATTEND Internal Medicine Hematology
DX: I27.82 Chronic pulmonary embolism (principal); E72.12 Methylenetetrahydrofolate reductase deficiency; I10 Essential (primary) hypertension; K21.9 Gastro-esophageal reflux disease without esophagitis; M19.90 Unspecified osteoarthritis, unspecified site; Z79.01 Long term (current) use of anticoagulants; R04.0 Epistaxis; R53.83 Other fatigue
CPT/HCPCS: 36415; 81240; 83090; 83516; 86148; 99202; 99212